=== PATIENT | female | born 1995 | race Caucasian/White ===

== ENCOUNTER 2016-06-19 21:42 | Emergency (ER) | payer MEDICAID ==
[2016-06-19 21:52] VITALS: BP 120/65
--- NOTE | 2016-06-19 21:57 | ER Document Report ---
ED Medical Screen (RME) - General Stated Complaint: SORE THROAT Notes: started at 830pm difficulty speaking due to pain, dysphagia denies fevers, chills can swallow I have greeted and performed a rapid initial assessment of this patient. A comprehensive ED assessment and evaluation of the patient, analysis of test results and completion of the medical decision making process will be conducted by additional ED providers. Physical Exam - Vital signs Vitals: Temp Pulse Resp BP Pulse Ox 98.8 F 102 H 16 120/65 95 06/19/16 21:51 06/19/16 21:51 06/19/16 21:51 06/19/16 21:51 06/19/16 21:51 Course - Vital Signs Vital signs: Temp Pulse Resp BP Pulse Ox 98.8 F 102 H 16 120/65 95 06/19/16 21:51 06/19/16 21:51 06/19/16 21:51 06/19/16 21:51 06/19/16 21:51
--- NOTE | 2016-06-20 01:48 | ER Document Report ---
ED ENT - General Chief Complaint: Sore Throat Stated Complaint: SORE THROAT Time seen by provider: 01:41 Mode of Arrival: Ambulatory Information source: Patient Notes: 20-year-old female presents to ED for "difficulty speaking and swallowing ". She states she might of had an allergic reaction but did not take any Benadryl and is now speaking freely. It's his swallowing with no trouble. States she can feel swelling down low in her throat. No swelling noted to the oral cavity or tongue. TRAVEL OUTSIDE OF THE [place] IN LAST 30 DAYS: No - HPI Patient complains to provider of: Throat problem Onset: This evening Onset/Duration: Gone Severity: None Pain Level: Denies Location of pain: Throat Associated symptoms: Other - Patient states she has swelling to her throat and difficulty swallowing earlier but it is all been relieved. Similar symptoms previously: Yes Recently seen / treated by doctor: No Past Medical History - General Information source: Patient - Social History Smoking Status: Never Smoker Cigarette use (# per day): No Chew tobacco use (# tins/day): No Smoking Education Provided: No Frequency of alcohol use: None Drug Abuse: None Lives with: Family Family History: Arthritis, CAD, COPD, CVA, DM, Hyperlipidemia, Hypertension, Malignancy, Thyroid Disfunction Patient has suicidal ideation: No Patient has homicidal ideation: No - Past Medical History Cardiac Medical History: Reports: None Pulmonary Medical History: Reports: Hx Asthma EENT Medical History: Reports: None Neurological Medical History: Reports: Hx Seizures Endocrine Medical History: Reports: None Renal/ Medical History: Reports: None Malignancy Medical History: Reports: None GI Medical History: Reports: None Musculoskeltal Medical History: Reports None Skin Medical History: Reports None Psychiatric Medical History: Reports: None Traumatic Medical History: Reports: None Infectious Medical History: Reports: None Surgical Hx: Negative Past Surgical History: Reports: None - Immunizations Immunizations up to date: Yes Hx Diphtheria, Pertussis, Tetanus Vaccination: Yes Review of Systems - Review of Systems Constitutional: No symptoms reported EENT: Difficulty swallowing, Throat swelling Cardiovascular: No symptoms reported Respiratory: No symptoms reported Gastrointestinal: No symptoms reported Genitourinary: No symptoms reported Female Genitourinary: No symptoms reported Musculoskeletal: No symptoms reported Skin: No symptoms reported Hematologic/Lymphatic: No symptoms reported Neurological/Psychological: No symptoms reported Physical Exam - Vital signs Vitals: Temp Pulse Resp BP Pulse Ox 98.8 F 102 H 16 120/65 95 06/19/16 21:51 06/19/16 21:51 06/19/16 21:51 06/19/16 21:51 06/19/16 21:51 Interpretation: Normal - General General appearance: Appears well, Alert - HEENT Head: Normocephalic, Atraumatic Eyes: Normal Pupils: PERRL Ears: Normal External canal: Normal Tympanic membrane: Normal Sinus: Normal Nasal: Normal Mouth/Lips: Normal. No: Angioedema Mucous membranes: Normal Pharynx: Normal. No: Erythema, Exudate, Peritonsillar abscess, Post nasal drainage, Retropharyngeal abscess, Tonsillar hypertrophy, Uvular edema, Potential airway comprom. Neck: Normal. No: Anterior cervical chain, Posterior cervical chain - Respiratory Respiratory status: No respiratory distress Chest status: Nontender Breath sounds: Normal Chest palpation: Normal - Cardiovascular Rhythm: Regular Heart sounds: Normal auscultation Murmur: No - Abdominal Inspection: Normal Distension: No distension Bowel sounds: Normal Tenderness: Nontender Organomegaly: No organomegaly - Back Back: Normal, Nontender - Extremities General upper extremity: Normal inspection, Nontender, Normal color, Normal ROM , Normal temperature General lower extremity: Normal inspection, Nontender, Normal color, Normal ROM , Normal temperature, Normal weight bearing. No: Waldo's sign - Neurological Neuro grossly intact: Yes Cognition: Normal Orientation: AAOx4 [place] Coma Scale Eye Opening: Spontaneous Ana Coma Scale Verbal: Oriented Ana Coma Scale Motor: Obeys Commands [place] Coma Scale Total: 15 Speech: Normal Motor strength normal: LUE, RUE, LLE, RLE Sensory: Normal - Psychological Associated symptoms: Normal affect, Normal mood - Skin Skin Temperature: Warm Skin Moisture: Dry Skin Color: Normal Course - Vital Signs Vital signs: Temp Pulse Resp BP Pulse Ox 98.8 F 102 H 16 120/65 95 06/19/16 21:51 06/19/16 21:51 06/19/16 21:51 06/19/16 21:51 06/19/16 21:51 Discharge - Discharge Clinical Impression: Allergic reaction Qualifiers: Encounter type: initial encounter Qualified Code(s): T78.40XA - Allergy, unspecified, initial encounter Disposition: HOME, SELF-CARE Instructions: Family Physicians / Practices Additional Instructions: ACUTE ALLERGIC REACTION: Your symptoms are due to an allergic reaction. Allergy can cause hives, swelling of the hands, feet, and face, hoarseness, and difficulty swallowing or breathing. It may be due to exposure to medication, animal dander, foods, infection, or insect bites. Medication is a common cause, even when prior use of this same medication caused no problems. Acute treatment may include adrenalin and antihistamines. Usually, the specific allergic agent can't be identified unless repeated episodes occur. Home treatment includes the following: (1) Stop any suspicious medications. This will be discussed with you. (2) Oral antihistamines for the next four to five days. Example, diphenhydramine (Benadryl) every four hours. (3) You may also use cimetidine (Tagamet), ranitidine (Zantac), or famotidine ( Pepcid) every four hours if diphenhydramine is not controlling itching and hives. (4) Avoid aspirin until the hives completely disappear. (5) Avoid hot baths or showers until the hives are completely gone. Call the doctor if faintness, difficulty swallowing, tightness in the chest , or wheezing occurs. EPINEPHRINE: An injection of epinephrine (also called adrenalin) is used to treat allergic reactions, asthma, and some other medical conditions. It is a stimulant medication that consticts blood vessels, relaxes smooth muscles such as in the bronchioles of the lung, elevates blood pressure, and increases heart rate. It can temporarily make you feel very nervous and shakey, but it's affects last only a short time, about 15 to 30 minutes at most. ACID-SUPPRESSING MEDICATION: You have a prescription for medicine which reduces the stomach's secretion of acid. Examples include Zantac, Tagament, and Pepcid. These drugs are often used to allow healing of ulcers or esophagitis. They may be needed to prevent recurrence of ulcers in some patients, or to prevent damage from acid reflux in the esophagus. Take all medication as prescribed, even after the pain is gone. Regular antacids may be added as needed if you have symptoms while taking this medicine. These medications sometimes are prescribed for allergic reactions because they have anti-histaminic effects and relieve the rash and itching of the reaction. There are usually no side effects from this medication. But, in rare cases and particularly in the elderly, serious problems can occur. Contact your doctor if there is fever, rash, hallucinations, confusion, or unusual bruising. Contact your doctor at once if you develop lightheadedness, black or bloody stool, or bloody vomitus. ANTIHISTAMINES: An antihistamine has been given and/or prescribed to control your symptoms. Antihistamines are used for many reasons, including itching, watering eyes, runny nose, allergic swelling, hives, and insect stings. Antihistamines may cause drowsiness, especially with the first dose. Do not operate machinery or drive while under the effects of the medication. Other common side effects include dry mouth and eyes. In older persons, antihistamines can occasionally cause urinary retention, constipation, and trouble focusing the eyes. Do not combine the medication with alcohol, or with any other medication without talking to your doctor. USE OF DIPHENHYDRAMINE: The use of diphenhydramine (Benadryl) has been recommended to control allergic symptoms. The 25 mg strength is available over- the-counter, as well as the elixir. This antihistamine is used for many symptoms. It's useful for itching, watering eyes and nose, allergic swelling, hives, and insect stings. The medication can be repeated four times daily. Age Elixir (12.5 mg/tsp) 25 mg pill 2-3 yr 1/2 tsp 4-8 yr 1 tsp 9-14 yr 2 tsp one tab adult 1-2 tabs Antihistamines may cause drowsiness, especially with the first dose. Do not operate machinery or drive while under the effects of the medication. Do not combine the medication with alcohol, or with any other medication without talking to your doctor. FOLLOW-UP CARE: If you have been referred to a physician for follow-up care, call the physician s office for an appointment as you were instructed or within the next two days. If you experience worsening or a significant change in your symptoms, notify the physician immediately or return to the Emergency Department at any time for re-evaluation. Prescriptions: Epinephrine [Epipen 2-Osei] 0.3 mg IM ASDIR PRN #1 ml PRN Reason:
== END 2016-06-20 02:20 | disposition home or self-care (01) ==
LOC: ER 21:42
DX: T78.40XA Allergy, unspecified, initial encounter (principal); R13.10 Dysphagia, unspecified; X58.XXXA Exposure to other specified factors, initial encounter
CPT/HCPCS: 87070; 87880; 99283